=== PATIENT | male | born 1955 | race Caucasian/White ===

== ENCOUNTER → 2021-01-24 15:50 | Outpatient (CLI) | payer MEDICARE, SELFPAY ==
--- NOTE | 2021-01-24 | DI.MRI.S_ITS ---
PROCEDURE: MR ANKLE LT WO CON INDICATIONS: plantar fasciitis TECHNIQUE: Noncontrast sagittal T1 spin echo and T2 fast spin echo with fat saturation, axial proton density fast spin echo and T2 fast spin echo with fat saturation, coronal T1 spin echo and T2 fast spin echo with fat saturation through the ankle/hindfoot. COMPARISON: None. FINDINGS: Image quality: Excellent. Bones and joints: No bone marrow contusions or fractures. No hindfoot coalitions. Plantar calcaneal enthesophyte is seen. No osteochondral injuries of the talar dome. No pathologic joint effusions. Medial structures: The posterior tibialis, flexor digitorum longus, and flexor hallucis longus tendons are intact. Fluid distending flexor tendon sheath is seen suggestive of low-grade tenosynovitis. The posterior tibial neurovascular bundle appears normal within the tarsal tunnel, without extrinsic mass effect. The deep layer (anterior and posterior tibiotalar ligaments) and superficial layer (tibionavicular, tibiospring, and tibiocalcaneal ligaments) of the deltoid ligament appear normal. The spring ligament components (superomedial calcaneonavicular, medioplantar oblique calcaneonavicular, and inferoplantar longitudinal ligaments) are intact. Lateral structures: The anterior talofibular, calcaneofibular, and posterior talofibular ligaments appear intact. More superiorly, the anterior and posterior tibiofibular ligaments appear intact, as is the intermalleolar ligament. The tibiofibular syndesmosis is normal in width at 2 mm or less. The peroneus longus and brevis tendons demonstrate normal location and morphology. Adjacent bony peroneal tubercle and retrotrochlear prominence are normal in size. The sinus tarsi demonstrates normal fatty signal, without edema, fibrosis, or cyst formation. Visualized sinus tarsi components (cervical ligament, interosseous talocalcaneal ligament, roots of the inferior extensor retinaculum) appear normal. The calcaneonavicular and calcaneocuboid components of the bifurcate ligament appear intact. The dorsal calcaneocuboid ligament appears intact. Anterior structures: The tibialis anterior, extensor hallucis longus, and extensor digitorum longus tendons appear intact. The dorsal talonavicular ligament appears intact. Posterior and plantar structures: Achilles tendon is intact. Thickened medial and lateral band of plantar fascia at its plantar calcaneal insertion is seen with surrounding soft tissue edema No abductor digiti quinti muscle atrophy to suggest Wang neuropathy. IMPRESSION: 1. Thickened plantar fascia at its calcaneal insertion with well-defined plantar calcaneal enthesophyte consistent with plantar fasciitis. 2. Suggestion of low-grade tenosynovitis involving flexor tendons with small amount of fluid distending tendon sheath. 3. No marrow edema. No fracture or dislocation. 4. Medial and lateral ankle ligaments are intact. Dictated by: Shun Mendosa M.D. on 01/25/2021 at 10:07 Approved by: Shun Mendosa M.D. on 01/25/2021 at 10:41
== END ==
PROVIDERS: PCP Nurse Practitioner Family; Referring Provider Orthopaedic Surgery Foot and Ankle Surgery; Visit Provider Orthopaedic Surgery Foot and Ankle Surgery
DX: M72.2 Plantar fascial fibromatosis (principal)
CPT/HCPCS: 73721

== ENCOUNTER → 2021-02-08 11:25 | Outpatient (CLI) | payer OTHER, SELFPAY ==
--- NOTE | 2021-02-08 11:31 | DI.MRI.S_ITS ---
PROCEDURE: MR FEMUR LT WO CON INDICATIONS: Strain of muscle, fascia and tendon of the posteri TECHNIQUE: Noncontrast coronal and sagittal T1 spin echo and STIR; axial T1 spin echo and T2 fast spin echo with fat saturation through the lower pelvis and thigh thigh regions to the lower distal femur.. COMPARISON: None. FINDINGS: Image quality: Excellent. Bones: The visualized bone marrow demonstrates normal signal on all sequences. The overlying cortex appears intact. No fractures lines or intra-osseous lesions. Soft tissues: The scanned muscles demonstrate normal overall bulk and internal signal. Subcutaneous tissues appear normal as well. No soft tissue masses are present. IMPRESSION: No area of marrow space edema or mass is found, and within the adjacent musculature and tendinous structures there is no sign of partial or full-thickness tear. Note is made of mild symmetric hip joint osteoarthritis on the coronal imaging, and a source of asymmetric left-sided predominant pain is not seen. Dictated by: Hans Khan M.D. on 02/08/2021 at 12:54 Approved by: Hans Khan M.D. on 02/08/2021 at 12:57
== END ==
PROVIDERS: PCP Nurse Practitioner Family; Referring Provider Orthopaedic Surgery; Visit Provider Orthopaedic Surgery
DX: S76.312A Strain of muscle, fascia and tendon of the posterior muscle group at thigh level, left thigh, initial encounter (principal)
CPT/HCPCS: 73718

== ENCOUNTER → 2022-01-20 12:50 | Outpatient (CLI) | payer MEDICARE, SELFPAY ==
[2022-01-20 17:29] LABS: COVID19 -Nasal RAPID Negative (Negative)
== END ==
PROVIDERS: PCP Nurse Practitioner Family; Visit Provider Surgery
DX: Z01.812 Encounter for preprocedural laboratory examination (principal); Z20.822 Contact with and (suspected) exposure to COVID-19
CPT/HCPCS: 87635; C9803

== ENCOUNTER 2022-01-21 13:26 | Day surgery (SDC) | payer MEDICARE, SELFPAY ==
[2022-01-21] VITALS (8 sets, daily range): BP systolic 128–158; BP diastolic 74–99; PULSE 70–85; RESP 14–18; TEMP 36.4–36.7; O2SAT 93–98; BMI 31.5
--- NOTE | 2022-01-21 | PATH_ITS ---
[facility] Accession Number: [id number] . 01 Material submitted: . rectum - RECTAL POLYP . 02 Diagnosis: Rectum, Polyp, Biopsy: Inflammatory polyp. Negative for dysplasia and malignancy. MRV 01/23/2022 1110 Local . 02 Electronically signed: . Veronica Arias MD, Pathologist NPI- [id number] . 01 Gross description: . RECTAL POLYP: Received in formalin is 1 fragment(s) of vigil, soft tissue measuring 0.3 x 0.2 x 0.2 cm submitted entirely in 1 cassette(s) /CPE 01/22/2022 0529 Local . 02 Pathologist provided ICD-10: K63.5 . 02 CPT . 340904 Specimen Comment: A courtesy copy of this report has been sent to [phone] Performed at: 01 [facility] [address] [facility], [place], [place] [id number] MD Stew Rose MD Phone: [phone] Performed at: [address] [facility] [address] [place], [place] [id number] MD Veronica Arias MD Phone: [phone]
[2022-01-21] MEDS: LACTATED RINGERS 1,000 ML 200 ML IV (14:00)
--- NOTE | 2022-01-21 14:52 | PM.HP.1 ---
History of Present Illness History of Present Illness Date Patient Seen: 01/21/22 Time Patient Seen: 14:53 Chief complaint: SDC Narrative: 66-year-old man history of colonic polyps here for some colonoscopy. Last colonoscopy was 15 years ago. He reports occasional bright red blood per rectum. No nausea vomiting unintentional weight loss. No personal or family history of intestinal malignancy. Patient History Family & Social History Tobacco & Substance use: Smoking Status Former smoker alcohol intake former alcohol intake frequency other Substance Use Type marijuana Meds Home Medications and Allergies Home Medications Medication Instructions Recorded Confirmed Type aspirin 81 mg tablet,delayed 81 mg PO QDAY #0 04/09/17 04/04/20 History release lisinopril 20 mg tablet 20 mg PO QDAY #0 04/09/17 04/04/20 History multivitamin (Multiple Vitamins) 1 tab PO QDAY #0 04/09/17 04/04/20 History mupirocin 2 % topical ointment 2 % TOPICAL #0 04/09/17 04/04/20 History simvastatin 20 mg tablet (Zocor) 10 mg PO HS #0 04/09/17 04/04/20 History divalproex 500 mg tablet,delayed See Rx Instructions PO .COMPLEX 04/04/20 04/04/20 Rx release (Depakote) #270 tab prazosin 2 mg capsule 2 mg PO BID #180 cap 04/04/20 04/04/20 Rx sertraline 100 mg tablet 200 mg PO QDAY #180 tab 04/04/20 04/04/20 Rx Allergies Allergy/AdvReac Type Severity Reaction Status Date / Time penicillin G [PENICILLIN G] Allergy Severe passed out Verified 04/04/20 15:53 Exam Vital Signs (past 8 hours): - 01/21/22 13:52 Temperature 97.6 F Pulse Rate 76 Respiratory Rate 15 Blood Pressure 158/99 H Pulse Oximetry 98 Oxygen Delivery Method Room Air Narrative Exam Narrative: GENERAL: Adult male in no apparent distress HEENT: No scleral icterus CV: Regular rate, no peripheral edema LUNGS: No increased work of breathing. Patient speaks in full sentences without oxygen support. ABDOMEN: Soft, non-tender, non-distended NEURO: Nonfocal, normal strength throughout, SKIN: Warm and dry Assessment & Plan Assessment & Plan narrative: The patient requires colorectal screening and colonoscopy is recommended. Technical details were discussed. Risks, benefits, alternatives explained. Risks including but not limited to myocardial infarction, aspiration, bleeding, pain, missed lesion, incomplete examination, need for further radiographic studies, colonic perforation, and need for major abdominal surgery were discussed. All questions were answered to their satisfaction, and they are in agreement with this plan. Time Spent With Patient Critical Care time: I spent a total of [] minutes of critical care time on this patient's care today; this time is exclusive of procedural time.
--- NOTE | 2022-01-21 15:28 | PM.OP.COLON ---
Operative Date/Time/Diagnoses Date of procedure: 01/21/22 Time of procedure: 15:28 Pre-op diagnosis: personal history of colonic polyps Post-op diagnosis: same Procedure & Clinicians Study performed: colonoscopy Same procedure as scheduled: Yes Indications: personal history of colonic polyps Surgeon: Gatito Lopez Procedure Notes Procedure in detail: Medications: Conscious sedation using 10 mg IV midazolam and 250 mcg IV of fentanyl The history and physical was performed/updated and the patient is ASA class is 2. The procedure was discussed in detail with the patient. Potential risks complications including infection, bleeding, missed diagnosis, perforation, need for surgery, and were explained. Their questions were answered and informed consent was obtained. Patient was brought to the procedure room and placed standard monitoring equipment. The patient's vital signs were monitored continuously throughout the entire procedure. Prior to starting time-out was performed. The patient was placed in the left lateral recumbent position. Procedural sedation was administered. Examination began with a thorough inspection of the perianal area there was no evidence of fissures, fistulae, external hemorrhoids or cutaneous malignancy. The colonoscopy scope was then placed into the anal canal and was advanced to the cecum, which was identified by the ileocecal valve, the appendiceal orifice and the confluence of the taenia. The scope was then slowly withdrawn examining colon thoroughly in all directions, irrigating it of any residual stool. FINDINGS 1. 5 mm rectal polyp removed with biopsy forceps 2. Extensive sigmoid diverticulosis The patient tolerated the procedure well. They will be discharged once criteria are met. The prep was of fair quality. The withdrawl time was 6 minutes. The sedation time was 22 minutes. Specimen(s): other (Rectal polyp) Impression: Colonic polyp Post-procedure Recommendations: Colonoscopy in 5 years Disposition: same day surgery
[2022-01-21] MEDS: fentaNYL 250 MCG/5 ML INJ IV (15:30)
[2022-01-21] MEDS: MIDAZOLAM 5 MG/5 ML VIAL IV (15:31)
--- NOTE | 2022-01-21 16:51 | SUR.PHASEII ---
Addendum entered by Ros Duncan R.N. 01/21/22 16:54: 1630-dressed. vss. no changes with status. 1645-discharged to ride, all copies of instructions with patient on discharge to ride's car , with all personel belongings. encouraged to call md if any questions,concerns, or problems. Original Note: 01/21/22-1615- states when asked about pain, now that more awake and alert. states its 05/11-but was 6/10 this am prior to procedure. abdomen soft/non tender when palpated. recommended to pass gas prn to help relieve some pressure on abdomen. for home tylenol for pain. to call MD if worsens. wants to proceed with discharge home.
== END 2022-01-21 16:45 | disposition home or self-care (01) ==
PROVIDERS: PCP Nurse Practitioner Family; Referring Provider Surgery; Visit Provider Surgery
PROC: 0DJD8ZZ Inspection of Lower Intestinal Tract, Via Natural or Artificial Opening Endoscopic (ICD-10-PCS; CPT 45378; principal; 2022-01-21 15:15)
DX: K62.5 Hemorrhage of anus and rectum (principal); Z86.010 Personal history of colon polyps; K57.30 Diverticulosis of large intestine without perforation or abscess without bleeding; K51.40 Inflammatory polyps of colon without complications
CPT/HCPCS: 45380; 99152; J2250; J3010